=== PATIENT | male | born 1975 | race Caucasian/White ===

== ENCOUNTER 2017-12-27 14:10 | Emergency (ER) | payer OTHER, SELFPAY ==
[2017-12-27 14:12] VITALS: BP 145/98; PULSE 65; RESP 14; TEMP 36.4; O2SAT 100
[2017-12-27] MEDS: KETOROLAC 60 MG/2 ML VIAL 15 MG IV (14:25)
--- NOTE | 2017-12-27 14:26 | DI.CT.S_ITS ---
PROCEDURE: CT ABDOMEN PELVIS W CON INDICATIONS: Right flank and right lower quadrant abdominal pain TECHNIQUE: After the administration of intravenous contrast, 5 mm thick sections acquired from the diaphragm to the symphysis. 5 mm coronal and sagittal reformats were acquired. For radiation dose reduction, the following was used: automated exposure control, adjustment of mA and/or kV according to patient size. COMPARISON: None. FINDINGS: Image quality: Excellent. ABDOMEN: Lung bases: Lung bases are clear. Heart size is normal. Solid organs: Liver is normal in size and enhancement. Gallbladder is within normal limits. Biliary system is non dilated. Pancreas enhances normally. Spleen is normal in size and enhancement. No adrenal nodules. Kidneys demonstrate normal size and enhancement. Minimal right hydronephrosis. No left hydronephrosis. 6 mm diameter nonobstructing calculus in the superior pole right kidney. 5 mm diameter right ureteropelvic junction calculus, with Hounsfield units of 348. Peritoneum and bowel: Bowel loops demonstrate normal wall thickness and caliber. No free fluid or air. Normal appendix. Nodes and vessels: No retroperitoneal or mesenteric adenopathy by size criteria. Aorta and inferior vena cava are normal in size. Miscellaneous: Fat-containing umbilical hernia measuring 13 mm. PELVIS: Genitourinary: Bladder wall thickness is normal. Miscellaneous: No inguinal hernias or adenopathy. Bones: No suspicious bony lesions. No vertebral body compression fractures. IMPRESSION: 1. Right ureteropelvic junction calculus associated with mild right hydronephrosis. 2. Nonobstructing right superior pole renal calculus. 3. Normal appendix. Dictated by: Poly Torres M.D. on 12/27/2017 at 14:56 Approved by: Poly Torres M.D. on 12/27/2017 at 14:59
[2017-12-27] MEDS: SODIUM CHLORIDE 0.9% 1,000 ML 1000 ML IV (14:31)
[2017-12-27 14:37] LABS: INR 1.1 (0.9-1.3); Prothrombin Time 12.2 SECONDS (10.1-12.7)
[2017-12-27 14:38] LABS: Add Manual Diff / Slide Review NO; Basophils Percent Auto 0.7 % (0-2); Eosinophils Percent Auto 1.1 % (2-4); Hematocrit 44.2 % (41-53); Hemoglobin 15.3 g/dL (13.5-17.5); Lymphocytes Percent Auto 41.1 % (25-40); Mean Corpuscular HGB Conc 34.7 % (30-36); Mean Corpuscular Hemoglobin 30.7 PG (26-34); Mean Corpuscular Volume 88.5 fL (80-100); Monocytes Percent Auto 13.8 % (3-14); Neutrophils Absolute Auto 3000 /uL (3000-5900); Neutrophils Percent Auto 43.3 % (50-75); Platelet Count 252 X10^3/uL (150-400); Red Blood Cell Count 4.99 X10^6/uL (4.5-5.9); Red Cell Distribution Width 13.6 % (11.6-14.8); White Blood Cell Count 6.8 X10^3/uL (4.5-11.0)
[2017-12-27 14:40] LABS: PTT Partial Thromboplastin Tim 26 SECONDS (26.4-36.2)
[2017-12-27 14:44] LABS: Alanine Aminotransferase 51 IU/L (21-72); Albumin 4.9 g/dL (3.5-5.0); Albumin Globulin Ratio 1.4 (1.0-2.8); Alkaline Phosphatase 51 U/L (38-126); Aspartate Aminotransferase 38 IU/L (17-59); BUN Creatinine Ratio 23.3 (6-22); Bilirubin Total 0.9 mg/dL (0.2-1.3); Blood Urea Nitrogen 21 mg/dL (9-20); Calcium 9.6 mg/dL (8.4-10.2); Carbon Dioxide 28 mmol/L (22-32); Chloride 99 mmol/L (98-107); Creatine Kinase 173 U/L (55-170); Estimated Glomerular Filt Rate > 60.0 mL/min (>60); Globulin 3.5 g/dL (1.7-4.1); Glucose 120 mg/dL (70-100); HEMOLYSIS 19 (0-50); Lipase 36 U/L (23-300); Potassium 3.7 mmol/L (3.4-5.1); Sodium 142 mmol/L (137-145); Total Protein 8.4 g/dL (6.3-8.2)
[2017-12-27 14:53] LABS: Bacteria Urine None Seen
[2017-12-27 14:56] LABS: Appearance Urine UA CLEAR; Bilirubin Urine UA 2+ (NEGATIVE); Color Urine UA YELLOW; Glucose Urine UA TRACE g/dL (Normal); Ketones Urine UA 1+ (NEGATIVE); Leukocyte Esterase Urine UA TRACE (NEGATIVE); Nitrite Urine UA POSITIVE (Negative); Occult Blood Urine UA 3+ (Negative); Protein Urine UA 3+ (Negative); Specific Gravity Urine UA 1.025 (1.000-1.035); pH Urine UA 6.5 (4.5-8.0)
[2017-12-27 15:09] LABS: Culture Indicated Urine Specimen Cultured; RBC Urine 30-100/HPF (0-5/HPF); WBC Urine 10-30/HPF (0-5/HPF)
[2017-12-27] MEDS: CEFTRIAXONE 1 GM/50 ML FROZ.PIGGY IV (15:40)
[2017-12-27 16:30] LABS: Ictotest Urine Negative (Negative)
[2017-12-27 16:40] LABS: Troponin I < 0.012 ng/mL (0.01-0.034)
--- NOTE | 2017-12-27 16:49 | ED.ABDPAIN ---
HPI - Abdominal Pain General Chief Complaint: Abdominal Pain Stated Complaint: ABD Pain History of Present Illness HPI narrative: HPI 42-year-old male presents for evaluation of poorly characterized waxing and waning right-sided abdominal pain. Yesterday patient had a period of nausea, vomiting, diarrhea which is since resolved, denies fevers, chills, or dysuria. At noon today the patient had sudden onset right sided flying/abdominal pain at weekly radiated towards his right lower quadrant and was without testicular pain or dysuria. M/S/F/SocHx notable for: please see HPI; remainder reviewed with patient and in chart. ROS: Negative constitutional, eye, cardiovascular, pulmonary, GI, , MSK, skin, neurologic, psychiatric, endocrine unless noted in the HPI. Exam HR 65, BP 145/98, RR 14, T 97.6 ?F, SaO2 100 % on room air; at 2:12 PM. Gen: Pleasant, non-toxic appearing, resting in minimal discomfort.. HEENT: NC, AT, PEERL, EOMI. Resp: Clear to auscultation bilaterally, normal work of breathing, no accessory muscle usage. Card: Regular rate and rhythm with no murmurs, rubs, or gallops, extremities warm and well perfused. GI: Non-tender to palpation throughout all quadrants, no focal tenderness at McBurney's point, negative Archibald's sign, non-distended, no rebound or guarding. : No suprapubic tenderness to palpation. No CVA tenderness bilaterally. MSK: No visible deformities, strength and tone without visually appreciable deficit. Skin: Normal color with no visible lesions. Neuro: AO x 3, no facial asymmetry, vision and hearing WNL. Psych: Mood and affect appropriate. Labs / Imaging: WBC 6.8, Hb 15.3, Na 142, K 3.7, total bilirubin 0.9, AST 38, ALT 51, ALP 51, lipase 36, creatinine 0.90, CK 173 UA - 1+ ketones, 3+ occult blood, nitrite positive, 2+ bilirubin, trace leukocyte esterase, 38-100 RBCs, 10-30 WBCs, no bacteria. CT abdomen/pelvis: right ureteral pelvic junction calculus (5 mm) associated with mild right hydronephrosis. Nonobstructing right superior pole renal calculus. Normal appendix. EKG: SR 66 bpm, no ST segment elevations or depressions, no LBBB. Troponin <0.012. MDM Previous chart, nursing note, labs, imaging, and vitals reviewed. A: 42-year-old male presents for evaluation of poorly characterized waxing and waning right-sided abdominal pain. DDx: ureterolithiasis, UTI, pyelonephritis, gastroenteritis, pseudoappendicitis, appendicitis, mesenteric adenitis, epiploic appendagitis, biliary disease. Evaluation: patient with a 5 mm stone, mild hydronephrosis, UA consistent with infection, no evidence of systemic involvement. Discussed with urologist acid conditioning worker, Dr. Cherry of , patient appropriate for outpatient management, patient to follow up at [facility]. Ceftriaxone given for possible infection, patient discharged with RX for Keflex. Sx management - 1 L NS and 30 mg Toradol given. * HTN - [Patient was notified of their elevated blood pressure and recommended to follow up with their primary care physician. As the patient is without evidence of acute end organ dysfunction no further emergent evaluation is indicated as per the 2013 [facility] clinical policy. * Repeat evaluation at approximately 4 PM with patient noting ongoing dyspepsia. Further history with patient statement this began with his emesis, but as persistent despite lack of emesis for last 24 hours. EKG and troponin ordered. Patient given ranitidine, sucralfate, and a GI cocktail. Given a nonischemic EKG, and negative troponin greater than 6 hours from maximal symptom onset strongly doubt ACS, unstable angina considered highly unlikely given the very atypical history. Patient given home care instructions regarding his tentatively suspected Gerd, instructed to follow up with his PCP. Impression: kidney stone, suspected UTI, suspected GERD. (please reference below for remainder of encounter information) Related Data Home Medications Medication Instructions Recorded Confirmed No Known Home Medications 12/27/17 12/27/17 Allergies Allergy/AdvReac Type Severity Reaction Status Date / Time No Known Drug Allergies Allergy Verified 12/27/17 14:16 Exam Initial Vital Signs Initial Vital Signs: Vital Signs Temperature 97.6 F 12/27/17 14:12 Pulse Rate 65 12/27/17 14:12 Respiratory Rate 14 12/27/17 14:12 Blood Pressure 145/98 H 12/27/17 14:12 Pulse Oximetry 100 12/27/17 14:12 Course Orders Ordered: ED Orders 12/27/17 14:22 Complete Blood Count AUTO DIFF Stat Comprehensive Metabolic Panel Stat Creatine Kinase Stat Lipase Stat Partial Thromboplastin Time Stat Prothrombin Time INR Stat Troponin I Stat 12/27/17 14:26 CT abdomen pelvis w con Stat 12/27/17 14:45 Ictotest Urine Stat Urinalysis and Microscopic Stat Urine Culture Stat 12/27/17 16:10 EKG-12 Lead Stat Sucralfate (Carafate) 1 gm PO Q6HR KRISTEN Discontinued Medications Al Hydrox/Mg Hydrox/Simethicone 20 ml/ Lidocaine HCl 15 ml 0 ml PO NOW ONE Stop: 12/27/17 16:41 Sodium Chloride (Normal Saline 0.9%) 1,000 mls @ 1,000 mls/hr IV BOLUS ONE Stop: 12/27/17 15:25 Last Infusion: 12/27/17 15:41 Dose: 0 mls/hr Admin: 12/27/17 14:31 Dose: 1,000 mls/hr Ceftriaxone Sodium/Dextrose (Rocephin) 1 gm in 50 mls @ 100 mls/hr IV NOW ONE Stop: 12/27/17 16:00 Last Infusion: 12/27/17 16:17 Dose: 0 mls/hr Admin: 12/27/17 15:40 Dose: 100 mls/hr Ketorolac Tromethamine (Toradol) 15 mg IV NOW ONE Stop: 12/27/17 14:28 Last Admin: 12/27/17 14:25 Dose: 15 mg Ranitidine HCl (Zantac) 300 mg PO NOW ONE Stop: 12/27/17 16:41 Vital Signs - 8 hr 12/27/17 14:12 Temperature 97.6 F Pulse Rate 65 Respiratory Rate 14 Blood Pressure 145/98 H Pulse Oximetry 100 MDM - Abdominal Pain Lab Data Result diagrams: 12/27/17 14:22 12/27/17 14:22 Lab Results 12/27/17 12/27/17 12/27/17 Range/Units 14:22 14:22 14:22 WBC 6.8 (4.5-11.0) X10^3/uL RBC 4.99 (4.5-5.9) X10^6/uL Hgb 15.3 (13.5-17.5) g/dL Hct 44.2 (41-53) % MCV 88.5 (80-100) fL MCH 30.7 (26-34) PG MCHC 34.7 (30-36) % RDW 13.6 (11.6-14.8) % Plt Count 252 (150-400) X10^3/uL Neut % (Auto) 43.3 L (50-75) % Lymph % (Auto) 41.1 H (25-40) % [place] % (Auto) 13.8 (3-14) % Eos % (Auto) 1.1 L (2-4) % Baso % (Auto) 0.7 (0-2) % Neut # (Auto) 3000 (7793-4775) /uL PT 12.2 (10.1-12.7) SECONDS INR 1.1 (0.9-1.3) APTT 26 L (26.4-36.2) SECONDS Sodium 142 (137-145) mmol/L Potassium 3.7 (3.4-5.1) mmol/L Chloride 99 (98-107) mmol/L Carbon Dioxide 28 (22-32) mmol/L BUN 21 H (9-20) mg/dL Creatinine 0.90 (0.66-1.25) mg/dL Estimated GFR > 60.0 (>60) mL/min BUN/Creatinine Ratio 23.3 H (6-22) Glucose 120 H (70-100) mg/dL Calcium 9.6 (8.4-10.2) mg/dL Total Bilirubin 0.9 (0.2-1.3) mg/dL AST 38 (17-59) IU/L ALT 51 (21-72) IU/L Alkaline Phosphatase 51 (38-126) U/L Total Creatine Kinase 173 H (55-170) U/L Troponin I < 0.012 (0.01-0.034) ng/mL Total Protein 8.4 H (6.3-8.2) g/dL Albumin 4.9 (3.5-5.0) g/dL Globulin 3.5 (1.7-4.1) g/dL Albumin/Globulin Ratio 1.4 (1.0-2.8) Lipase 36 (23-300) U/L Urine Color Urine Appearance Urine pH (4.5-8.0) Ur Specific [place] (1.000-1.035) Urine Protein (Negative) Urine Glucose (UA) (Normal) g/dL Urine Ketones (NEGATIVE) Urine Occult Blood (Negative) Urine Nitrate (Negative) Urine Bilirubin (NEGATIVE) Urine Ictotest (Negative) Urine Urobilinogen (0.2) E.U./dL Ur Leukocyte Esterase (NEGATIVE) Urine RBC (0-5/HPF) Urine WBC (0-5/HPF) Urine Bacteria (None) Ur Culture Indicated? Micro UA Comment 12/27/17 12/27/17 Range/Units 14:45 14:45 WBC (4.5-11.0) X10^3/uL RBC (4.5-5.9) X10^6/uL Hgb (13.5-17.5) g/dL Hct (41-53) % MCV (80-100) fL MCH (26-34) PG MCHC (30-36) % RDW (11.6-14.8) % Plt Count (150-400) X10^3/uL Neut % (Auto) (50-75) % Lymph % (Auto) (25-40) % [place] % (Auto) (3-14) % Eos % (Auto) (2-4) % Baso % (Auto) (0-2) % Neut # (Auto) (8963-5109) /uL PT (10.1-12.7) SECONDS INR (0.9-1.3) APTT (26.4-36.2) SECONDS Sodium (137-145) mmol/L Potassium (3.4-5.1) mmol/L Chloride (98-107) mmol/L Carbon Dioxide (22-32) mmol/L BUN (9-20) mg/dL Creatinine (0.66-1.25) mg/dL Estimated GFR (>60) mL/min BUN/Creatinine Ratio (6-22) Glucose (70-100) mg/dL Calcium (8.4-10.2) mg/dL Total Bilirubin (0.2-1.3) mg/dL AST (17-59) IU/L ALT (21-72) IU/L Alkaline Phosphatase (38-126) U/L Total Creatine Kinase (55-170) U/L Troponin I (0.01-0.034) ng/mL Total Protein (6.3-8.2) g/dL Albumin (3.5-5.0) g/dL Globulin (1.7-4.1) g/dL Albumin/Globulin Ratio (1.0-2.8) Lipase (23-300) U/L Urine Color Yellow Urine Appearance Clear Urine pH 6.5 (4.5-8.0) Ur Specific [place] 1.025 (1.000-1.035) Urine Protein 3+ H (Negative) Urine Glucose (UA) Trace (Normal) g/dL Urine Ketones 1+ H (NEGATIVE) Urine Occult Blood 3+ H (Negative) Urine Nitrate Positive (Negative) Urine Bilirubin 2+ H (NEGATIVE) Urine Ictotest Negative (Negative) Urine Urobilinogen 1.0 (0.2) E.U./dL Ur Leukocyte Esterase Trace H (NEGATIVE) Urine RBC 30-100/hpf H (0-5/HPF) Urine WBC 10-30/hpf H (0-5/HPF) Urine Bacteria None seen (None) Ur Culture Indicated? Specimen cultured Micro UA Comment Not Reportable Discharge Plan Departure Prescriptions: No Action No Known Home Medications RF: 0
[2017-12-27] MEDS: SUCRALFATE 1 GM TABLET PO (16:59)
[2017-12-27] MEDS: MAG HYDROX/ALUMINUM/SIMETH SUS 20 ML, LIDOCAINE VISCOUS 2% 15 ML PO (16:59)
[2017-12-27 17:20] VITALS: BP 132/98; PULSE 57; RESP 20; TEMP 36.7; O2SAT 100
== END 2017-12-27 17:22 | disposition home or self-care (01) ==
PROVIDERS: Emergency Provider Emergency Medicine
DX: N20.0 Calculus of kidney (principal)
CPT/HCPCS: 36591; 74177; 80053; 81001; 82550; 83690; 84484; 85025; 85610; 85730; 87086; 93005; 93010; 96361; 96365; 96375; 99283; 99285; J1885

== ENCOUNTER → 2018-04-12 08:47 | Outpatient (CLI) | payer OTHER, SELFPAY ==
--- NOTE | 2018-04-12 | DI.CT.S_ITS ---
PROCEDURE: CT SINUS SCREEN WO CON INDICATIONS: Neoplasm of uncertain behavior of other respirator TECHNIQUE: Noncontrast 3.0 mm axial images acquired from the frontal sinuses to the mid-sella, with coronal and sagittal reformats. For radiation dose reduction, the following was used: automated exposure control, adjustment of mA and/or kV according to patient size. COMPARISON: None. FINDINGS: Image quality: Excellent. Maxillary Sinuses: No bony remodeling or destruction. Sinuses are clear except for a small mucus retention cyst within the inferior right maxillary sinus. A slight degree of posterior fluid or mucosal thickening can be seen within each maxillary sinus. Ethmoid Air Cells: No bony remodeling or destruction. Sinuses are clear. Sphenoid Sinuses: No bony remodeling or destruction. Sinuses are clear. Frontal Sinuses: No bony remodeling or destruction. Sinuses are clear. Ostiomeatal Complexes: Ostiomeatal complexes are patent. No Sonali cells. Miscellaneous: Visualized intra-orbital contents are normal. No tata bullosa or paradoxical turbinate curvature. No nasal septal deviation. IMPRESSION: Small right maxillary sinus mucus retention cysts, slight fluid or mucosal thickening inferior maxillary sinuses bilaterally. No neoplasm found. If underlying neoplasm is clinically suspected followup by contrast-enhanced MR scanning likely is warranted. Dictated by: Jose York M.D. on 04/12/2018 at 11:33 Approved by: Jose York M.D. on 04/12/2018 at 11:35
== END ==
PROVIDERS: PCP Nurse Practitioner Family; Visit Provider Nurse Practitioner Family
DX: D38.5 Neoplasm of uncertain behavior of other respiratory organs (principal); J34.1 Cyst and mucocele of nose and nasal sinus
CPT/HCPCS: 70486

== ENCOUNTER → 2018-05-31 11:05 | Outpatient (CLI) | payer OTHER, SELFPAY ==
--- NOTE | 2018-05-31 | DI.MRI.S_ITS ---
PROCEDURE: MR ORBITS FACE NECK WO/W CON INDICATIONS: Right facial pain. Right sided neck mass TECHNIQUE: Sagittal/axial/coronal T1 spin echo and STIR. After the administration of contrast, axial/coronal/sagittal T1 fast spin echo with fat saturation through the neck. COMPARISON: [facility], CT, CT SINUS SCREEN WO CON, 04/12/2018, 8:46. FINDINGS: Image quality: Excellent. Lymph nodes: In this patient with this given history, scrutiny is given to the area of clinical concern as marked on the skin of the right mid neck laterally. Just posterior to this marker, there is an enlarged right cervical lymph node seen within level III that measures 2 x 1.3 cm in greatest axial dimension, with a craniocaudal extent of 2.6 cm. No additional enlarged cervical lymph nodes can be seen on either side. Vessels: Visualized vasculature appears normal, with normal flow voids and enhancement. Neck spaces: The oropharynx, nasopharynx and pharynx are unremarkable, without mucosal lesions seen. Vocal cords, false vocal cords, pyriform sinuses, epiglottis, vallecula, and tongue base all appear normal. Extramucosal spaces of the neck also appear unremarkable. Glands: The parotid glands demonstrate a normal, symmetric appearance. The right submandibular gland is more prominent than the left submandibular gland. The thyroid gland is unremarkable. Miscellaneous: Visualized brain and orbits appear normal. Lung apices appear clear. Superficial soft tissues appear normal. There is a mucous retention cyst seen within the right maxillary sinus. Mild mucosal thickening can be seen within the ethmoid air cells and the left maxillary sinus. Bones: Marrow has normal overall signal. IMPRESSION: Just posterior to the skin marker, there is a mildly enlarged right level III lymph node. The right submandibular gland is asymmetrically enlarged compared to the left, which is potentially related to the palpable abnormality. Please correlate with physical examination findings. Mild paranasal sinus disease. Dictated by: Son Ramirez M.D. on 05/31/2018 at 11:40 Approved by: Son Ramirez M.D. on 05/31/2018 at 11:49
== END ==
PROVIDERS: PCP Nurse Practitioner Family; Visit Provider Otolaryngology
DX: R59.0 Localized enlarged lymph nodes (principal); R51 Headache; J32.8 Other chronic sinusitis
CPT/HCPCS: 70543; A9579

== ENCOUNTER → 2019-07-13 10:48 | Outpatient (CLI) | payer OTHER, SELFPAY ==
--- NOTE | 2019-07-13 10:53 | DI.US.S_ITS ---
PROCEDURE: US SOFT TISSUE HEAD AND NECK INDICATIONS: SUBJECTIVE PROGRESSION IN SUBMANDIBULAR NECK MASS TECHNIQUE: Real-time scanning was performed of the neck region of interest, with image documentation. COMPARISON: [facility], CT, CT SINUS SCREEN WO CON, 04/12/2018, 8:46. [facility], MR, MR ORBITS FACE NECK WO/W CON, 05/31/2018, 11:26. FINDINGS: In the area of current clinical concern which reportedly has represented an area of enlarged lymph nodes on the right from prior MR scanning there is a large heterogeneous mass which measures up to 5.4 x 3.0 cm. This appears to represent the same mass as was identified during MR scanning 05/31/18. Maximal axial dimension of this structure in May of last year was up to 2.3 cm. IMPRESSION: The measured dimensions of the level III right neck mass has mildly enlarged, from the MR measurements in May of 2018. Excisional biopsy may be warranted at this time. ENT surgical consultation is recommended. Dictated by: Jose York M.D. on 07/13/2019 at 12:30 Approved by: Jose York M.D. on 07/13/2019 at 12:35
== END ==
PROVIDERS: PCP Family Medicine; Referring Provider Family Medicine; Visit Provider Family Medicine
DX: R22.1 Localized swelling, mass and lump, neck (principal)
CPT/HCPCS: 76536

== ENCOUNTER → 2019-08-04 09:11 | Outpatient (CLI) | payer OTHER, SELFPAY ==
--- NOTE | 2019-08-04 09:22 | DI.CT.S_ITS ---
PROCEDURE: CT SOFT TISSUE NECK W CON INDICATIONS: Localized swelling, mass and lump, neck TECHNIQUE: After the administration of intravenous contrast, 3.0 mm axial sections acquired from the sella to the aortic arch. Additional oblique axial 3.0 mm sections acquired through the pharynx. 3 mm thick coronal and sagittal reformats were generated. For radiation dose reduction, the following was used: automated exposure control. COMPARISON: None. FINDINGS: Image quality: Excellent. Lymph nodes: Deep to the skin marker in the right lateral neck is a heterogeneous mass at the level of the hyoid bone anterior to the jugular vein level 2A/III measuring 5.7 x 3.8 x 3.8 cm, (2/46 and 4/30), previously on ultrasound 07/13/2019 this measured 5.4 x 3 x 4 cm; and previously 2.4 x 2.4 cm on MR 05/31/2018. The mass demonstrates heterogeneous enhancement with a lobular configuration and cystic component. At the level of the hyoid bone on the right posterior to the jugular vein is a heterogeneous lymph node measuring 1.5 x 1.5 cm, (2/45). A few shotty lymph nodes in the right lower supraclavicular neck. Vessels: Visualized vasculature appears patent. Neck spaces: The oropharynx, nasopharynx, and pharynx demonstrate no mucosal lesions. The vocal cords, false vocal cords, pyriform sinuses, epiglottis, vallecula, and tongue base all appear normal. Extramucosal spaces appear unremarkable. Glands: The parotid and submandibular glands are symmetric. Thyroid gland is unremarkable. Miscellaneous: No filling defect in the right jugular vein. No calcified atherosclerotic plaque. Mucosal thickening or mucous retention cyst in the right maxillary sinus similar to multiple prior exams. Subcutaneous nodule posterior to the left year and left skull base may represent small sebaceous cysts. Visualized brain and orbits appear normal. Lung apices appear clear. Superficial soft tissues appear normal. Bones: No suspicious bony lesions. Visualized sinuses and mastoids appear unremarkable. IMPRESSION: 1. Right level 2A/III heterogeneous enhancing mass measuring about 5.7 x 3.8 cm. The lesion is similar in size to the ultrasound 07/13/2019 blood increased compared to 05/31/2018. 2. Additional enlarged right level 2B/III heterogeneous lymph node measuring 1.5 cm. These findings are suspicious for malignancy. Recommend ultrasound-guided biopsy if not yet performed. PET/CT may be helpful for further evaluation. Dictated by: Anselmo Church M.D. on 08/04/2019 at 10:15 Approved by: Anselmo Church M.D. on 08/04/2019 at 10:36
== END ==
PROVIDERS: PCP Family Medicine; Referring Provider Otolaryngology; Visit Provider Otolaryngology
DX: R22.1 Localized swelling, mass and lump, neck (principal); G50.0 Trigeminal neuralgia; R59.0 Localized enlarged lymph nodes
CPT/HCPCS: 70491; Q9967

== ENCOUNTER 2019-10-04 15:20 | Observation (INO) | payer OTHER, SELFPAY ==
[2019-10-04 15:34] VITALS: BP 151/89; PULSE 78; RESP 18; TEMP 36.7; O2SAT 99; BMI 30.3
--- NOTE | 2019-10-04 15:48 | ED_ITS ---
HPI - General Adult General Chief complaint: Dental/Oral Stated complaint: BLEEDING AFTER TONSILS OUT Time Seen by Provider: 10/04/19 15:44 Source: patient and family Mode of arrival: Family Vehicle Limitations: no limitations History of Present Illness HPI narrative: This is a 43-year-old male who comes to the emergency department with complaint of bleeding from the tonsils. Patient had mass removed about a month ago. Had tonsillectomy with biopsies yesterday with Dr. Pittman at [place]. Patient states that today he had some soup and then coughed and started having bleeding he states seem like there was a significant amount and bled for about 10 or 15 minutes. He denies any lightheadedness, he did not feel like he is going to pass out. He has pain in his tonsils he states that the bleeding has since stopped since his arrival. Patient denies any chest pain or shortness of breath, no nausea or vomiting. Patient is not on any anticoagulants. He is taking ibuprofen, Tylenol as well as OxyContin for pain control. Patient has had orthopedic surgeries in the past but denies any other medical issues. He denies any allergies to medications. Related Data Home Medications Medication Instructions Recorded Confirmed acetaminophen [Tylenol Extra 1,000 mg PO QID PRN 10/04/19 10/04/19 Strength] ibuprofen 600 mg PO Q8H PRN 10/04/19 10/04/19 oxycodone 5 mg PO Q4HR PRN 10/04/19 10/04/19 Allergies Allergy/AdvReac Type Severity Reaction Status Date / Time No Known Drug Allergies Allergy Verified 10/04/19 15:36 Review of Systems Review of Systems ROS Unobtainable: All systems reviewed & are unremarkable except as noted in HPI and below Patient History Medical History ADHD (Acute) Anxiety (Acute) Foot pain (Chronic) Fractures (Resolved) Neck mass (Acute) Psoriasis (Acute) PTSD (post-traumatic stress disorder) (Acute) Restless leg syndrome (Acute) Right arm fracture (Acute) Shoulder pain (Chronic) Surgical History Anesthesia (Resolved) History of surgery (Resolved ~2007) History of surgery on arm (Resolved ~1999) Right kidney stone (Resolved ~2017) Family History (Updated 10/05/19 @ 01:32 by AMMON Chávez) Mother Stroke Kidney disease Substance abuse Father Medical history unknown Social History household members: spouse and friend(s) Smoking Status: Former smoker Smoking Status: Former smoker alcohol intake frequency: 0-2 drinks per day Substance Use Type: does not use Exam Narrative Exam Narrative: GEN: well nourished, well appearing male, alert and oriented x 3, patient appears to be in mild distress. HEENT: Atraumatic, pupils are equal round reactive to light, extraocular movements are intact, nares are clear, TMs are clear with no fluid, there is no conjunctival pallor. Throat is shows bilateral wounds consistent with tonsillectomy, no eschar or fibrin clot is noted, no erythema, there is pink tissue present. No active bleeding but there is some wet red blood in the tissue itself. Patient does not have any swelling of the uvula or oropharynx. HEART: Regular rate and rhythm without murmur, clicks, rubs. LUNGS:Lungs clear to auscultation, no wheezes, rales, crackles, chest moves symmetrically ABD:bowel sounds normal, soft, non-tender, no guarding, rebound, rigidity, no masses noted, no hepatosplenomegaly MSCL: Non-tender, full range of motion, normal gait NEURO:CN 2-12 intact, sensation normal Initial Vital Signs Initial Vital Signs: Vital Signs Temperature 98.0 F 10/04/19 15:34 Pulse Rate 78 10/04/19 15:34 Respiratory Rate 18 10/04/19 15:34 Blood Pressure 151/89 H 10/04/19 15:34 Pulse Oximetry 99 10/04/19 15:34 Course Orders Ordered: Discontinued Medications Hydromorphone HCl (Dilaudid) 0.5 mg IV NOW ONE Stop: 10/05/19 06:42 Last Admin: 10/05/19 06:57 Dose: 0.5 mg Documented by: MPFECARMELINA Hydromorphone HCl (Dilaudid) 0.5 mg IV NOW ONE Stop: 10/05/19 10:00 Last Admin: 10/05/19 10:16 Dose: 0.5 mg Documented by: CPETRIC Sodium Chloride (Normal Saline 0.9%) 1,000 mls @ 75 mls/hr IV CONT KRISTEN Last Infusion: 10/05/19 09:48 Dose: 0 mls/hr Documented by: Infusion: 10/05/19 03:44 Dose: 75 mls/hr Documented by: Admin: 10/05/19 03:43 Dose: 75 mls/hr Documented by: Infusion: 10/05/19 03:23 Dose: 75 mls/hr Documented by: Infusion: 10/05/19 01:36 Dose: 75 mls/hr Documented by: Infusion: 10/04/19 19:18 Dose: 125 mls/hr Documented by: Admin: 10/04/19 18:40 Dose: 125 mls/hr Documented by: GEORGIE Lorazepam (Ativan) 0.5 mg IV NOW ONE Stop: 10/04/19 16:36 Last Admin: 10/04/19 16:45 Dose: 0.5 mg Documented by: GEORGIE Morphine Sulfate (Morphine) 2 mg IV Q4HR PRN PRN Reason: Pain, Mild (1-3) Last Admin: 10/04/19 18:40 Dose: 2 mg Documented by: GEORGIE Morphine Sulfate (Morphine) 2 mg IV Q4HR PRN PRN Reason: Pain, Moderate (4-6) Last Admin: 10/05/19 05:07 Dose: 2 mg Documented by: Admin: 10/05/19 01:02 Dose: 2 mg Documented by: Admin: 10/04/19 21:10 Dose: 2 mg Documented by: MARIO Naloxone HCl (Narcan) 0.2 mg IV Q2MIN PRN PRN Reason: Opiate Reversal Ondansetron HCl (Zofran) 4 mg IV Q4HR PRN PRN Reason: Nausea And Vomiting Last Admin: 10/04/19 18:40 Dose: 4 mg Documented by: GEORGIE Ondansetron HCl (Zofran) 4 mg IV Q6HR PRN PRN Reason: Nausea And Vomiting Tranexamic Acid (Cyklokapron) 500 mg MM NOW ONE Stop: 10/04/19 16:01 Last Admin: 10/04/19 16:19 Dose: 500 mg Documented by: LUIGI Vital Signs Vital signs: Vital Signs - 8 hr 10/04/19 15:34 10/04/19 16:02 10/04/19 16:20 Temperature 98.0 F Pulse Rate 78 72 78 Respiratory Rate 18 14 14 Blood Pressure 151/89 H Blood Pressure [Left Arm] 127/70 Pulse Oximetry 99 99 10/04/19 17:21 Temperature Pulse Rate 69 Respiratory Rate 14 Blood Pressure Blood Pressure [Left Arm] 132/78 Pulse Oximetry Medical Decision Making Lab Data Result diagrams: 10/05/19 04:40 10/05/19 04:40 Labs: Lab Results 10/04/19 10/04/19 10/04/19 Range/Units 17:15 17:15 17:15 WBC 19.8 H (4.5-11.0) X10^3/uL RBC 4.72 (4.5-5.9) X10^6/uL Hgb 14.1 (13.5-17.5) g/dL Hct 40.6 L (41-53) % MCV 85.9 (80-100) fL MCH 29.8 (26-34) PG MCHC 34.7 (30-36) % RDW 14.2 (11.6-14.8) % Plt Count 266 (150-400) X10^3/uL Neut % (Auto) 79.5 H (50-75) % Lymph % (Auto) 7.7 L (25-40) % [place] % (Auto) 12.3 (3-14) % Eos % (Auto) 0.1 L (2-4) % Baso % (Auto) 0.4 (0-2) % Neut # (Auto) 59940 H (4954-3645) /uL Lymph # (Auto) 1500 (5549-9795) /uL [place] # (Auto) 2400 H (0-900) /uL Eos # (Auto) 0 (0-450) /uL Baso # (Auto) 100 (0-100) /uL PT 11.6 (10.1-12.7) SECONDS INR 1.0 (0.9-1.3) APTT 29 D (26.4-36.2) SECONDS Sodium (137-145) mmol/L Potassium (3.4-5.1) mmol/L Chloride (98-107) mmol/L Carbon Dioxide (22-32) mmol/L BUN (9-20) mg/dL Creatinine (0.66-1.25) mg/dL Estimated GFR (>60) mL/min BUN/Creatinine Ratio (6-22) Glucose (70-100) mg/dL Calcium (8.4-10.2) mg/dL Total Bilirubin (0.2-1.3) mg/dL AST (17-59) IU/L ALT (<50) IU/L Alkaline Phosphatase (38-126) U/L Total Protein (6.3-8.2) g/dL Albumin (3.5-5.0) g/dL Globulin (1.7-4.1) g/dL Albumin/Globulin Ratio (1.0-2.8) Blood Type O Positive Antibody Screen Negative 10/04/19 Range/Units 17:15 WBC (4.5-11.0) X10^3/uL RBC (4.5-5.9) X10^6/uL Hgb (13.5-17.5) g/dL Hct (41-53) % MCV (80-100) fL MCH (26-34) PG MCHC (30-36) % RDW (11.6-14.8) % Plt Count (150-400) X10^3/uL Neut % (Auto) (50-75) % Lymph % (Auto) (25-40) % [place] % (Auto) (3-14) % Eos % (Auto) (2-4) % Baso % (Auto) (0-2) % Neut # (Auto) (1979-0805) /uL Lymph # (Auto) (6267-8443) /uL [place] # (Auto) (0-900) /uL Eos # (Auto) (0-450) /uL Baso # (Auto) (0-100) /uL PT (10.1-12.7) SECONDS INR (0.9-1.3) APTT (26.4-36.2) SECONDS Sodium 136 L (137-145) mmol/L Potassium 4.6 (3.4-5.1) mmol/L Chloride 102 (98-107) mmol/L Carbon Dioxide 27 (22-32) mmol/L BUN 21 H (9-20) mg/dL Creatinine 0.73 (0.66-1.25) mg/dL Estimated GFR > 60.0 (>60) mL/min BUN/Creatinine Ratio 28.8 H (6-22) Glucose 112 H (70-100) mg/dL Calcium 9.5 (8.4-10.2) mg/dL Total Bilirubin 0.5 (0.2-1.3) mg/dL AST 27 (17-59) IU/L ALT 31 (<50) IU/L Alkaline Phosphatase 48 (38-126) U/L Total Protein 8.3 H (6.3-8.2) g/dL Albumin 4.6 (3.5-5.0) g/dL Globulin 3.7 (1.7-4.1) g/dL Albumin/Globulin Ratio 1.2 (1.0-2.8) Blood Type Antibody Screen MDM Narrative Medical decision making narrative: Patient comes to the emergency department he is not actively bleeding on arrival but does describe a fairly large amount of blood. Patient was not tachycardic, blood pressure is appropriate. He had tonsillectomy yesterday. Patient was given txa nebulized in the department. Line was placed and after much discussion patient is initially refusing lab draw for type and screen and CBC. I did discuss that if patient has continuing bleeding that it would be important to at least have a type and screen after a long discussion of risks versus benefits patient is willing to allow the lab to draw him after receiving anxiolytic medication. Patient's family was at bedside, so was RT during this discussion. Patient case discussed with Dr. Rapp. Discussed patient was reluctant to allow blood draw. We were able to and hematocrit has changed from 44-[address] Rapp did not have this number available. Patient's vitals have been stable he has not had additional bleeding in the last hour and a half during our discussion with Dr. Rapp. Discussed that with his post-tonsillar bleed he would recommend gargling with ice water for reoccurs. We did discuss that it is unclear how large amount of bleeding but sounds like potentially moderate not massive opt of CIS home. Patient is reluctant to return home he would recommend observation overnight, if patient feels comfortable returning home and has no additional bleeding after several hours of observation patient can return but she with strict return precautions and if he has additional bleeding Dr. Pittman is on-call tonight. Spoke with Dr. Hawk, she accepts for observation. She requests transitional orders. Given cell phone number for Dr. Pittman who is international project engineer tonight for ENT. Patient comfortable with plan. He had not had any additional bleeding in the emergency department but had a moderate to large amount of bleeding and would be appropriate for observation overnight. Discharge Plan Departure Patient Disposition: Admitted as Observation Clinical Impression: Post-tonsillectomy hemorrhage Discharge Date/Time: 10/04/19 19:21 Instructions: Clear Liquid Diet, DI for Tonsillectomy-Adult, DI for Prescription Opioid Use Referrals: Devan Pittman MD [Physician] - 10/05/19 Mandeep Lyman DO [Primary Care Provider] - Admit Date/Time: 10/04/19 18:29 Admit Provider: Aby Hawk
[2019-10-04 16:02] VITALS: BP 127/70; PULSE 72; RESP 14
[2019-10-04] MEDS: TRANEXAMIC ACID 1,000 MG VIAL 500 MG MM (16:19)
[2019-10-04 16:20] VITALS: PULSE 78; RESP 14; O2SAT 99
[2019-10-04] MEDS: LORazepam 2 MG/ML INJ 0.5 MG IV (16:45)
[2019-10-04 17:21] VITALS: BP 132/78; PULSE 69; RESP 14
[2019-10-04 17:37] LABS: Prothrombin Time 11.6 SECONDS (10.1-12.7)
[2019-10-04 17:40] LABS: PTT Partial Thromboplastin Tim 29 SECONDS (26.4-36.2)
[2019-10-04 17:41] LABS: Alanine Aminotransferase 31 IU/L (<50); Albumin 4.6 g/dL (3.5-5.0); Albumin Globulin Ratio 1.2 (1.0-2.8); Alkaline Phosphatase 48 U/L (38-126); Aspartate Aminotransferase 27 IU/L (17-59); BUN Creatinine Ratio 28.8 (6-22); Bilirubin Total 0.5 mg/dL (0.2-1.3); Blood Urea Nitrogen 21 mg/dL (9-20); Calcium 9.5 mg/dL (8.4-10.2); Carbon Dioxide 27 mmol/L (22-32); Chloride 102 mmol/L (98-107); Estimated Glomerular Filt Rate > 60.0 mL/min (>60); Globulin 3.7 g/dL (1.7-4.1); Glucose 112 mg/dL (70-100); HEMOLYSIS < 15 (0-50); Potassium 4.6 mmol/L (3.4-5.1); Sodium 136 mmol/L (137-145); Total Protein 8.3 g/dL (6.3-8.2)
[2019-10-04 17:42] LABS: Add Manual Diff / Slide Review NO; Basophils Absolute Auto 100 /uL (0-100); Basophils Percent Auto 0.4 % (0-2); Eosinophils Absolute Auto 0 /uL (0-450); Eosinophils Percent Auto 0.1 % (2-4); Hematocrit 40.6 % (41-53); Hemoglobin 14.1 g/dL (13.5-17.5); Lymphocytes Absolute Auto 1500 /uL (1100-4500); Lymphocytes Percent Auto 7.7 % (25-40); Mean Corpuscular HGB Conc 34.7 % (30-36); Mean Corpuscular Hemoglobin 29.8 PG (26-34); Mean Corpuscular Volume 85.9 fL (80-100); Monocytes Absolute Auto 2400 /uL (0-900); Monocytes Percent Auto 12.3 % (3-14); Neutrophils Absolute Auto 15700 /uL (1500-7000); Neutrophils Percent Auto 79.5 % (50-75); Platelet Count 266 X10^3/uL (150-400); Red Blood Cell Count 4.72 X10^6/uL (4.5-5.9); Red Cell Distribution Width 14.2 % (11.6-14.8); White Blood Cell Count 19.8 X10^3/uL (4.5-11.0)
[2019-10-04] MEDS: ONDANSETRON 4 MG/2 ML INJ IV (18:40)
[2019-10-04] MEDS: MORPHINE 2 MG/ML INJ IV ×2 (18:40→21:10)
[2019-10-04] MEDS: SODIUM CHLORIDE 0.9% 1,000 ML 125 ML IV (18:40)
[2019-10-04 18:52] VITALS: BP 128/85; PULSE 74; RESP 12; O2SAT 98
[2019-10-04 19:32] VITALS: BMI 30.3
[2019-10-04 20:23] VITALS: O2SAT 99
--- NOTE | 2019-10-04 20:52 | P.HP_ITS ---
History of Present Illness History of Present Illness Date Patient Seen: 10/04/19 Time Patient Seen: 20:40 Chief complaint: BLEEDING AFTER TONSILS OUT Narrative: Mr. Joe Yeh is a 43-year-old male who was a former smoker with a history significant for neck masses found to be squamous cell cancer, nephro lithiasis, anxiety and PTSD who presents to the emergency room with post tonsillectomy bleeding. The patient underwent tonsillectomy yesterday by Dr. Pittman. The patient was eating liquid meal when he coughed and began bleeding profusely. Patient reports feeling a cup with blood lasting about 5 minutes. Patient presented to the ER at which time bleeding it is all but stopped. 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 Patient 3 of 23 lymph nodes returned positive for squamous cell cancer, TX N3 MX. He is being followed by oncology and is to start chemo and radiation therapy. The patient recovered well from his neck procedure the reports paresthesias to the lateral neck extending to the jaw line to midline. Reports no associated symptoms related to today's event with no lightheadedness or dizziness, nausea vomiting. He has had no recent illness and denies COVID-19 exposure. He has had no fevers or chills, headaches. He has been somewhat hoarse following tonsillectomy. Denies complaints of chest pain or palpitations, shortness of breath cough or wheezing. He has had no abdominal pain, heartburn, nausea or vomiting. Reports no changes in bowel or bladder habits. Upon arrival the patient has a temperature of 98.0?, heart rate of 81, blood pressure 151/89, respirations of 14 saturating 99% on room air. No imaging is obtained the patient has an elevated white count at 19.8, hemoglobin of 14.1, hematocrit of 40.6 and platelets 266. On coagulation has a PT of 11.6, INR 1.0 PTT of 29. His electrolytes are all within normal limits he has a BUN 21 and creatinine 0.73. His nonfasting glucose is 112. His LFTs are all within normal limits. He is typed and screened and found to be O positive. Well in the ER the patient received nebulized tranexamic acid, Ativan 0.5 mg and morphine 2 mg and Zofran 4 mg. Bleeding is controlled. The case is reviewed with Dr. Rapp who was on-call for Dr. Pittman and is recommended the patient stay overnight for observation and is admitted to the medicine service for postoperative bleeding. Patient History Medical History ADHD (Acute) Anxiety (Acute) Foot pain (Chronic) Fractures (Resolved) Neck mass (Acute) Psoriasis (Acute) PTSD (post-traumatic stress disorder) (Acute) Restless leg syndrome (Acute) Right arm fracture (Acute) Shoulder pain (Chronic) Surgical History Anesthesia (Resolved) History of surgery (Resolved ~2007) History of surgery on arm (Resolved ~1999) Right kidney stone (Resolved ~2017) Family & Social History Family History (Updated 10/05/19 @ 01:32 by AMMON Chávez) Mother Stroke Kidney disease Substance abuse Father Medical history unknown Social History: household members spouse,friend(s) Prior Living Arrangements House Safety & Behavioral: Feels Safe in Current Yes Environment Been Physically Hurt or No Threatened By a Person Suicidal Ideation Description None Suicide Plan Description No Plan Tobacco & Substance use: Smoking Status Former smoker alcohol intake frequency 0-2 drinks per day Substance Use Type does not use Meds Home Medications and Allergies Home Medications Medication Instructions Recorded Confirmed Type acetaminophen [Tylenol Extra 1,000 mg PO QID PRN 10/04/19 10/04/19 History Strength] ibuprofen 600 mg PO Q8H PRN 10/04/19 10/04/19 History oxycodone 5 mg PO Q4HR PRN 10/04/19 10/04/19 History Allergies Allergy/AdvReac Type Severity Reaction Status Date / Time No Known Drug Allergies Allergy Verified 10/04/19 15:36 Review of Systems Review of Systems ROS: Yes All systems reviewed with the patient and are negative except as otherwise documented Exam Vital Signs (past 8 hours): - 10/04/19 17:21 10/04/19 18:52 10/04/19 20:23 Temperature Pulse Rate 69 74 Respiratory Rate 14 12 Blood Pressure Blood Pressure [Left Arm] 132/78 128/85 Pulse Oximetry 98 99 10/05/19 00:23 Temperature 98.0 F Pulse Rate 78 Respiratory Rate 16 Blood Pressure 128/80 Blood Pressure [Left Arm] Pulse Oximetry 97 Oxygen Delivery Method Room Air Narrative Exam Narrative: GENERAL APPEARANCE: well developed, well nourished, in no acute distress. HEENT: Normocephalic, PERRLA, conjunctiva clear, EOMs intact without nystagmus, oropharynx pink and moist, uvula swollen, tonsillar bed as best visualized with eschar and no active bleeding. NECK/THYROID: Well-healed T incision right lateral neck, numbness inferior to the mandible and to midline anteriorly, full ROM, no JVD, no thyromegaly, trachea midline. LYMPH NODES: no cervical or supraclavicular lymphadenopathy. SKIN: [place], warm and dry, no visible rashes, ulcerations or petechiae. HEART: regular rate and rhythm, S1-S2, no murmur, no rubs or gallops, brisk capillary refill, no edema LUNGS: clear to auscultation bilaterally, no coarseness crackles or wheezing, no cough present CHEST: Symmetrical movement, no accessory muscle use, good tidal volume. ABDOMEN: Soft, no distention, no abdominal tenderness, no guarding or peritoneal signs, no organomegaly, no flank or suprapubic tenderness, active bowel tones. BACK: Normal curvature, nontender to palpation, no CVA tenderness on percussion EXTREMITIES: moves all extremities, strength is 5/5 and symmetrical, no deformities or joint effusions. NEUROLOGIC: AAO x4, no focal neurologic deficits, cranial nerves II-XII grossly intact, peripheral sensation intact to light touch, hearing grossly normal to speech. PSYCH: Anxious, quiet, cooperative, stable behavior Objective Labs Result Diagrams: 10/04/19 17:15 10/04/19 17:15 Labs: Laboratory Results - last 24 hr 10/04/19 10/04/19 10/04/19 17:15 17:15 17:15 WBC 19.8 H RBC 4.72 Hgb 14.1 Hct 40.6 L MCV 85.9 MCH 29.8 MCHC 34.7 RDW 14.2 Plt Count 266 Neut % (Auto) 79.5 H Lymph % (Auto) 7.7 L [place] % (Auto) 12.3 Eos % (Auto) 0.1 L Baso % (Auto) 0.4 Neut # (Auto) 60138 H Lymph # (Auto) 1500 [place] # (Auto) 2400 H Eos # (Auto) 0 Baso # (Auto) 100 PT 11.6 INR 1.0 APTT 29 D Sodium Potassium Chloride Carbon Dioxide BUN Creatinine Estimated GFR BUN/Creatinine Ratio Glucose Calcium Total Bilirubin AST ALT Alkaline Phosphatase Total Protein Albumin Globulin Albumin/Globulin Ratio Blood Type O Positive Antibody Screen Negative 10/04/19 17:15 WBC RBC Hgb Hct MCV MCH MCHC RDW Plt Count Neut % (Auto) Lymph % (Auto) [place] % (Auto) Eos % (Auto) Baso % (Auto) Neut # (Auto) Lymph # (Auto) [place] # (Auto) Eos # (Auto) Baso # (Auto) PT INR APTT Sodium 136 L Potassium 4.6 Chloride 102 Carbon Dioxide 27 BUN 21 H Creatinine 0.73 Estimated GFR > 60.0 BUN/Creatinine Ratio 28.8 H Glucose 112 H Calcium 9.5 Total Bilirubin 0.5 AST 27 ALT 31 Alkaline Phosphatase 48 Total Protein 8.3 H Albumin 4.6 Globulin 3.7 Albumin/Globulin Ratio 1.2 Blood Type Antibody Screen Assessment & Plan Assessment & Plan narrative: This is a 43-year-old male patient who presents to the ER with post tonsillectomy bleeding following procedure yesterday. Procedure was done in conjunction with neck surgery for excision of squamous cell carcinoma. 1. Post tonsillectomy hemorrhage, acute, present on admission, controlled. -patient underwent tonsillectomy yesterday for invasive squamous cell carcinoma. He had abrupt onset of profuse bleeding following coughing today. -from description from patient estimated EBL is approximately 250-300 mL. Patient without associated symptoms of dizziness or shortness of breath. -in the ER the patient received nebulized tranexamic acid. No further intervention required. -Dr. Rapp on-call for Dr. Pittman who performed the procedure was notified planned developed for patient to be observed overnight with the ENT consult. -patient is NPO tonight and will start clear liquids in the morning. -will recheck blood count in the morning. 2. Leukocytosis, acute, present on admission, active -patient with an elevated white count at 19.8 without complaints of fever pain or swelling. Infection related to tonsillectomy is rare and believed to be reactive. -will recheck CBC in the morning. 3. Squamous cell carcinoma of the neck, present on admission, stable. -tonsillectomy performed related to invasion of squamous cell carcinoma. -patient to follow with oncology and is to start chemo and radiation therapy. Isolation: None VTE prophylaxis: SCDs, chemical prophylaxis contraindicated. IV fluid: Normal saline 125 while patient NPO. Diet: NPO, clear liquids in the morning. Code status: In direct discussion with patient states his desire to be FULL CODE. Designates his to be surrogate decision maker. Patient is admitted due to the severity of his symptoms and continued risk of rebleeding following tonsillectomy yesterday. The patient is admitted observation status with an expected length of stay less than 2 midnights. Scores GCS [place] coma scale eye opening: Spontaneous [place] coma scale verbal response: Orientated [place] coma scale motor response: Obey commands [place] coma scale total score: 15 Quality VTE Deep Vein Thrombosis/Pulmonary Embolism Present on Admission: No
--- NOTE | 2019-10-04 20:53 | PC.NURSE ---
admit pt to AC from ER approx 191. VSS. A&O x3. oral mucosa moist and without presence of active bleed. Oral swabs and chapstick provided. Pt independent in bed and instructed to notify RN/DIP TUBE ASSEMBLER MACHINE prior to activity for assist with equipment. Able to converse and swallow secretions without difficulty. Instructed on use of call light and bed controls.
[2019-10-05] VITALS: O2SAT 97
[2019-10-05 00:23] VITALS: BP 128/80; PULSE 78; RESP 16; TEMP 36.7; O2SAT 97
[2019-10-05] MEDS: MORPHINE 2 MG/ML INJ IV ×2 (01:02→05:07)
[2019-10-05 03:40] VITALS: BP 122/75; PULSE 63; RESP 16; TEMP 36.5; O2SAT 96
[2019-10-05] MEDS: SODIUM CHLORIDE 0.9% 1,000 ML 75 ML IV (03:43)
[2019-10-05 04:00] VITALS: O2SAT 96
[2019-10-05 05:09] LABS: Add Manual Diff / Slide Review NO; Basophils Absolute Auto 0 /uL (0-100); Basophils Percent Auto 0.1 % (0-2); Eosinophils Absolute Auto 0 /uL (0-450); Hematocrit 37.8 % (41-53); Lymphocytes Absolute Auto 2800 /uL (1100-4500); Lymphocytes Percent Auto 20.5 % (25-40); Mean Corpuscular HGB Conc 34.5 % (30-36); Mean Corpuscular Volume 86.9 fL (80-100); Monocytes Absolute Auto 1900 /uL (0-900); Monocytes Percent Auto 13.9 % (3-14); Neutrophils Absolute Auto 8800 /uL (1500-7000); Neutrophils Percent Auto 65.5 % (50-75); Platelet Count 239 X10^3/uL (150-400); Red Blood Cell Count 4.35 X10^6/uL (4.5-5.9); Red Cell Distribution Width 14.1 % (11.6-14.8); White Blood Cell Count 13.5 X10^3/uL (4.5-11.0)
[2019-10-05 05:19] LABS: BUN Creatinine Ratio 22.9 (6-22); Blood Urea Nitrogen 19 mg/dL (9-20); Calcium 8.6 mg/dL (8.4-10.2); Carbon Dioxide 28 mmol/L (22-32); Chloride 103 mmol/L (98-107); Estimated Glomerular Filt Rate > 60.0 mL/min (>60); Glucose 107 mg/dL (70-100); HEMOLYSIS < 15 (0-50); Potassium 4.4 mmol/L (3.4-5.1); Sodium 137 mmol/L (137-145)
[2019-10-05] MEDS: HYDROMORPHONE 0.5 MG INJ IV ×2 (06:57→10:16)
--- NOTE | 2019-10-05 07:01 | PC.NURSE ---
AMMON Garcia notified that Morphine 2 mg. was not effective for pain control. Ordered of Dilaudid 0.5 mg. received & implemented. Ice pack also applied to his neck. Will cont. POC & monitor.
[2019-10-05 08:08] VITALS: BP 133/82; PULSE 75; RESP 16; TEMP 36.9; O2SAT 99
--- NOTE | 2019-10-05 09:26 | PM.DS.1 ---
History of Present Illness History of Present Illness Date Patient Seen: 10/04/19 Chief complaint: BLEEDING AFTER TONSILS OUT Narrative: Written by Matthew VERDE: Mr. Joe Yeh is a 43-year-old male who was a former smoker with a history significant for neck masses found to be squamous cell cancer, nephro lithiasis, anxiety and PTSD who presents to the emergency room with post tonsillectomy bleeding. The patient underwent tonsillectomy yesterday by Dr. Pittman. The patient was eating liquid meal when he coughed and began bleeding profusely. Patient reports feeling a cup with blood lasting about 5 minutes. Patient presented to the ER at which time bleeding it is all but stopped. 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 Patient 3 of 23 lymph nodes returned positive for squamous cell cancer, TX N3 MX. He is being followed by oncology and is to start chemo and radiation therapy. The patient recovered well from his neck procedure the reports paresthesias to the lateral neck extending to the jaw line to midline. Reports no associated symptoms related to today's event with no lightheadedness or dizziness, nausea vomiting. He has had no recent illness and denies COVID-19 exposure. He has had no fevers or chills, headaches. He has been somewhat hoarse following tonsillectomy. Denies complaints of chest pain or palpitations, shortness of breath cough or wheezing. He has had no abdominal pain, heartburn, nausea or vomiting. Reports no changes in bowel or bladder habits. Upon arrival the patient has a temperature of 98.0?, heart rate of 81, blood pressure 151/89, respirations of 14 saturating 99% on room air. No imaging is obtained the patient has an elevated white count at 19.8, hemoglobin of 14.1, hematocrit of 40.6 and platelets 266. On coagulation has a PT of 11.6, INR 1.0 PTT of 29. His electrolytes are all within normal limits he has a BUN 21 and creatinine 0.73. His nonfasting glucose is 112. His LFTs are all within normal limits. He is typed and screened and found to be O positive. Well in the ER the patient received nebulized tranexamic acid, Ativan 0.5 mg and morphine 2 mg and Zofran 4 mg. Bleeding is controlled. The case is reviewed with Dr. Rapp who was on-call for Dr. Pittman and is recommended the patient stay overnight for observation and is admitted to the medicine service for postoperative bleeding. Discharge Providers Provider Date of admission: 10/04/19 18:29 Discharge Date: 10/05/19 Primary care physician: Mandeep Lyman DO Consults: 10/04/19 20:27 Consult to Discharge Planning Routine Comment: 10/05/19 01:30 Consult to General Surgery Routine Comment: Consulting Provider: Devan Pittman Reason for consultation: Post tonsillectomy bleed, Dr. Rapp notified. Has provider been notified: Yes Discharge provider: Aby Hawk DO Summary Hospital Course Discharge Diagnosis: 1. Acute post tonsillectomy hemorrhage, present on admission. Resolved. 2. Acute reactive leukocytosis, present on admission. Resolving. 3. 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 Presumed stable. Hospital Course: Joe Yeh is a 43-year-old male with a past medical history significant for former smoker, invasive squamous cell cancer of neck, nephrolithiasis, anxiety and PTSD who presented to the ED with post tonsillectomy bleeding. 1. Acute post tonsillectomy hemorrhage, present on admission. Resolved. -Patient underwent tonsillectomy day prior to admission for invasive squamous cell carcinoma. He had abrupt onset of profuse bleeding following coughing today. Per patient description estimated blood loss was approximately 250-300 mL. Patient without associated symptoms of dizziness or shortness of breath. -Initial hemoglobin 14.1 and trended down to 13.0 but likely dilution and secondary to IV fluids. -Received nebulized tranexamic acid in ED. No further intervention required. -ENT, Dr. Rapp, was notified and on-call for Dr. Pittman who performed the procedure who requested patient be observed overnight and follow-up in office directly after discharge. -Patient kept NPO overnight and then was started on clears until further guided by ENT. He tolerated clears well. -Continued pain control with oxycodone 5 mg every 4 hours and dilaudid 0.5 mg x 2 doses for severe break through pain. 2. Acute reactive leukocytosis, present on admission. Resolving. -Initial WBC 19.8 and trended down to 13.5 and normalizing. No systemic signs of infection. -Continued to WBC daily. 3. 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 Presumed stable. -Tonsillectomy performed related to invasion of squamous cell carcinoma. -Followed by oncology, Dr. Corbett, with plans to start chemo and radiation therapy soon. Exam Vital Signs (past 8 hours): - 10/05/19 03:40 10/05/19 04:00 10/05/19 08:08 Temperature 97.7 F 98.4 F Pulse Rate 63 75 Respiratory Rate 16 16 Blood Pressure 122/75 133/82 Pulse Oximetry 96 96 99 Oxygen Delivery Method Room Air Oxygen Flow Rate 0 Narrative Exam Narrative: General: Middle aged gentleman lying in bed and in no acute distress, well-developed, well-nourished, flattering but otherwise appropriately interactive. HEENT: Normocephalic, atraumatic. External ears without defect. Pupils equal, round, and reactive to light. Anicteric sclerae, moist conjunctivae, and no lid lag. Bilateral tonsillectomy healing with scab and granulation tissue, mild erythema, no active bleeding. Uvula non-swollen. HEART: Regular rate and rhythm without murmur, clicks, rubs. Neck: Supple with full range of motion. No lymphadenopathy or thyromegaly. Cardiovascular: Regular rate and rhythm without murmurs, rubs, or gallops appreciated Pulmonary: Clear to auscultation bilaterally without crackles, wheezes, or rhonchi. Normal respiratory effort with no use of accessory muscles. Abdomen: Soft, bowel sounds present, nontender, nondistended. No hepatosplenomegaly or masses appreciated. Extremities: No clubbing, cyanosis, or edema. Skin: Normal temperature, turgor, and texture; no rash, ulcers, or subcutaneous nodules appreciated. Neurological: Cranial nerves grossly intact. Psychiatric: Anxious and slightly irritable mood and affect. Alert and oriented to person, place, and time. Objective Labs Result Diagrams: 10/05/19 04:40 10/05/19 04:40 Labs: Laboratory Results - last 24 hr 10/04/19 10/04/19 10/04/19 17:15 17:15 17:15 WBC 19.8 H RBC 4.72 Hgb 14.1 Hct 40.6 L MCV 85.9 MCH 29.8 MCHC 34.7 RDW 14.2 Plt Count 266 Neut % (Auto) 79.5 H Lymph % (Auto) 7.7 L [place] % (Auto) 12.3 Eos % (Auto) 0.1 L Baso % (Auto) 0.4 Neut # (Auto) 13964 H Lymph # (Auto) 1500 [place] # (Auto) 2400 H Eos # (Auto) 0 Baso # (Auto) 100 PT 11.6 INR 1.0 APTT 29 D Sodium Potassium Chloride Carbon Dioxide BUN Creatinine Estimated GFR BUN/Creatinine Ratio Glucose Calcium Total Bilirubin AST ALT Alkaline Phosphatase Total Protein Albumin Globulin Albumin/Globulin Ratio Blood Type O Positive Antibody Screen Negative 10/04/19 10/05/19 10/05/19 17:15 04:40 04:40 WBC 13.5 H RBC 4.35 L Hgb 13.0 L Hct 37.8 L MCV 86.9 MCH 30.0 MCHC 34.5 RDW 14.1 Plt Count 239 Neut % (Auto) 65.5 Lymph % (Auto) 20.5 L [place] % (Auto) 13.9 Eos % (Auto) 0.0 L Baso % (Auto) 0.1 Neut # (Auto) 8800 H Lymph # (Auto) 2800 [place] # (Auto) 1900 H Eos # (Auto) 0 Baso # (Auto) 0 PT INR APTT Sodium 136 L 137 Potassium 4.6 4.4 Chloride 102 103 Carbon Dioxide 27 28 BUN 21 H 19 Creatinine 0.73 0.83 Estimated GFR > 60.0 > 60.0 BUN/Creatinine Ratio 28.8 H 22.9 H Glucose 112 H 107 H Calcium 9.5 8.6 Total Bilirubin 0.5 AST 27 ALT 31 Alkaline Phosphatase 48 Total Protein 8.3 H Albumin 4.6 Globulin 3.7 Albumin/Globulin Ratio 1.2 Blood Type Antibody Screen Discharge Plan Discharge Plan Patient Disposition: Home Discharge comment: You're being discharged home. You were hospitalized for observation of post tonsillectomy bleeding. Your blood counts are stable. Please continue a clear liquid diet until further instructed by ENT. Continue pain control with the medications you were previously prescribed. Please follow-up with your ENT, Dr. Pittman, today at time of discharge. Discharge orders & Medications Prescriptions: Continued oxycodone 5 mg tablet 5 mg PO Q4HR PRN (Reason: Pain (Scale Score 4-6)) RF: 0 acetaminophen [Tylenol Extra Strength] 500 mg Tablet 1,000 mg PO QID PRN (Reason: pain ) RF: 0 ibuprofen 600 mg Tablet 600 mg PO Q8H PRN (Reason: Pain (Scale Score 1-3)) RF: 0 Follow up/Referrals: Devan Pittman MD [Physician] - 10/05/19 Mandeep Lyman, [Primary Care Provider] - Diet/Activity/Treatments Diet comment: Clear liquid Activity: Activity as tolerated Visit Report/Discharge Packet Instructions: Clear Liquid Diet, DI for Tonsillectomy-Adult, DI for Prescription Opioid Use Discharge Data Primary Care Provider: Mandeep Lyman Attending Provider: Aby Hawk Admit Date/Time: 10/04/19 18:29 Discharges patient from system. Discharge Date/Time: 10/05/19 12:17 Quality VTE Deep Vein Thrombosis/Pulmonary Embolism Present on Admission: No
--- NOTE | 2019-10-05 11:13 | PC.NURSE ---
Addendum entered by Brigido De Guzman R.N. 10/05/19 12:14: IV dc'd intact. Patient has no further questions. Escorted out via wheelchair with all belongings by [employer] to be discharged to home with his . Original Note: Discharge instructions and home care handouts reviewed with patient. Patient states understanding and has no further questions at this time. Patient reports he does feel a little anxious about the bleeding happening again, states he has a hard time taking it easy, but is going to try better this time around. Patient tolerating clear liquids this morning without n/v. Patient is waiting for his 's arrival to pick him up and then will go directly to Dr. Rapp' office from here for follow up. Spoke with Ruby in Dr. Rapp' office and she is expecting his arrival after discharge.
--- NOTE | 2019-10-05 13:48 | CM.DPNOTE ---
DC Note: Patient is a 43 yo male, admitted observation w/ bleeding after tonsillectomy. PCP: Mandeep Lyman Payer: [facility] Reviewed chart and spoke w/ RN Brigido; patient had already DC home w/family support before this G[employer]INING [employer]ESS OPERATOR was able to complete bedside visit. No needs from this GRAINING PRESS OPERATOR indicated by physician and RN JW
== END 2019-10-05 12:17 | disposition home or self-care (01) ==
LOC: ED 18:28 → AC 18:30
PROVIDERS: Nurse Practitioner Adult Health; Admitting Provider Internal Medicine; Emergency Provider Emergency Medicine; PCP Family Medicine; Referring Provider Emergency Medicine; Visit Provider Internal Medicine
DX: K91.841 Postprocedural hemorrhage of a digestive system organ or structure following other procedure (principal); C09.8 Malignant neoplasm of overlapping sites of tonsil; Z87.891 Personal history of nicotine dependence; D72.829 Elevated white blood cell count, unspecified
CPT/HCPCS: 36415; 80048; 80053; 85025; 85610; 85730; 86850; 86900; 86901; 94640; 96361; 96374; 96375; 96376; 99284; G0378; J1170; J2060; J2270; J2405

== ENCOUNTER 2021-11-13 07:21 | Emergency (ER) | payer OTHER, SELFPAY ==
[2021-11-13 07:27] VITALS: BP 136/82; PULSE 84; O2SAT 95
[2021-11-13 07:30] VITALS: PULSE 75; O2SAT 98
[2021-11-13 07:31] VITALS: BP 157/105; PULSE 74; O2SAT 97
--- NOTE | 2021-11-13 07:36 | DI.RAD.S_ITS ---
PROCEDURE: XR TIBIA FUBULA RT 2V INDICATIONS: fall TECHNIQUE: 2 views of the tibia and fibula were acquired. COMPARISON: None. FINDINGS: Bones: Old distal tibial fracture with internal fixation. In addition, there is old healed proximal fibular shaft fracture. No acute fractures or dislocations. No suspicious bony lesions. Moderate talonavicular joint degeneration is noted. Soft tissues: No suspicious soft tissue calcifications or masses. IMPRESSION: 1. No acute osseous abnormalities. 2. Old fractures of the distal tibia and proximal fibula. Dictated by: Flip Carmichael M.D. on 11/13/2021 at 8:33 Approved by: Flip Carmichael M.D. on 11/13/2021 at 8:35
[2021-11-13 07:37] VITALS: BP 136/82; PULSE 80; RESP 18; TEMP 36.5; O2SAT 99
--- NOTE | 2021-11-13 08:47 | ED.LOWEXIN ---
HPI - Extremity Injury (Lower) General Chief Complaint: Extremity Injury, Lower Stated Complaint: Right leg injury- has hardware in it Time Seen by Provider: 11/13/21 07:29 Source: patient Mode of arrival: Family Vehicle History of Present Illness HPI Narrative: 45-year-old male with an injury to his right lower extremity. Approximately years ago he had a significant injury to his tibia/fibula which required internal fixation. Three days ago he was hiking for he states the ground gave way underneath him and he essentially dorsiflex his right ankle which she states has had very limited movement since the initial injury. Since that time he has had discomfort. He has tried to stay off of it as much as possible. Has tried to keep it elevated but he continues to hurt. Related Data Home Medications Medication Instructions Recorded Confirmed acetaminophen 500 mg tablet 1,000 mg PO QID PRN pain 10/04/19 10/04/19 (Tylenol Extra Strength) ibuprofen 600 mg tablet 600 mg PO Q8H PRN Pain (Scale 10/04/19 10/04/19 Score 1-3) oxycodone 5 mg tablet 5 mg PO Q4HR PRN Pain (Scale Score 10/04/19 10/04/19 4-6) Allergies Allergy/AdvReac Type Severity Reaction Status Date / Time No Known Drug Allergies Allergy Verified 11/13/21 07:36 Review of Systems Musculoskeletal Musculoskeletal: Reports system reviewed and no additional complaints, except as documented Integumentary/Breasts Skin/Breast: Reports system reviewed and no additional complaints, except as documented Neurologic Neurologic: Reports system reviewed and no additional complaints, except as documented Patient History Medical History ADHD Anxiety Foot pain Fractures Neck mass Psoriasis PTSD (post-traumatic stress disorder) Restless leg syndrome Right arm fracture Shoulder pain Squamous cell carcinoma Surgical History Anesthesia History of surgery (~2007) History of surgery on arm (~1999) Right kidney stone (~2017) Family History (Updated 10/05/19 @ 01:32 by AMMON Chávez) Mother Stroke Kidney disease Substance abuse Father Medical history unknown Social History household members: spouse and friend(s) Smoking Status: Former smoker Smoking Status: Former smoker tobacco type: cigarettes and vaping alcohol intake frequency: a few times a week Substance Use Type: marijuana Exam Initial Vital Signs Initial Vital Signs: Vital Signs Pulse Rate 84 11/13/21 07:27 Blood Pressure 136/82 11/13/21 07:27 Pulse Oximetry 95 11/13/21 07:27 Cardio Pulses: dorsalis pedis present on the right Skin Other: Well-healed surgical scars consistent with his stated ORIF history Neuro Sensory Exam: no sensory deficits noted Extrem Other: Patient has tenderness to palpation over the tibialis anterior. He does have limited range of motion was right ankle this is baseline. No tenderness over the dorsum of his foot. Achilles tendon is intact. Gastrocnemius is intact. Course Orders Ordered: ED Orders 11/13/21 07:36 XR tibia fibula RT 2V Stat Vital Signs Vital signs: Vital Signs - 8 hr 11/13/21 07:37 11/13/21 07:27 11/13/21 07:27 Temperature 97.7 F Pulse Rate 80 84 Respiratory Rate 18 Blood Pressure 136/82 136/82 Pulse Oximetry 99 95 Oxygen Delivery Method Room Air 11/13/21 07:30 11/13/21 07:31 11/13/21 07:31 Temperature Pulse Rate 75 74 Respiratory Rate Blood Pressure 157/105 H Pulse Oximetry 98 97 Oxygen Delivery Method MDM - Extremity Injury (Lower) Imaging Data Extremity x-ray #1: Radiologist's Impression: [address] [address] XRay Report Signed Patient: Joe Yeh MR#: [id number] : 1975 Acct:[id number] Age/Sex: 45 / M Date of Service: 11/13/21 Loc: ED Accession Number: [id number] ?? Procedure: XR tibia fibula RT 2V Ordering Provider: Butch Askew D.O. PROCEDURE:? XR TIBIA FUBULA RT 2V ? INDICATIONS:? fall ? TECHNIQUE:? 2 views of the tibia and fibula were acquired.? ? COMPARISON:? None. ? FINDINGS:? ? Bones:? Old distal tibial fracture with internal fixation.? In addition, there is old healed proximal fibular shaft fracture.? No acute fractures or dislocations.? No suspicious bony lesions.? Moderate talonavicular joint degeneration is noted. ? Soft tissues:? No suspicious soft tissue calcifications or masses.? ? IMPRESSION:? ? 1. No acute osseous abnormalities. 2. Old fractures of the distal tibia and proximal fibula.? ? ? Dictated by: Flip Carmichael M.D. on 11/13/2021 at 8:33 ? ? Approved by: Flip Carmichael M.D. on 11/13/2021 at 8:35?? MDM Narrative Medical decision making narrative: X-ray shows no signs of acute fracture or dislocation in the hardware appears normal. He is neurovascularly intact. Will send home with crutches. Patient can ambulate as tolerated. He was given return precautions. He expressed understanding and agreement. Discharge Plan Departure Patient Disposition: Home Clinical Impression: Injury of leg, right Instructions: How to Use Crutches Activity Restrictions/Additional Instructions: The x-ray did not show any signs of fracture and the hardware appears to be intact. You can walk on your leg as tolerated. Use the crutches as needed and contact your primary doctor for a follow-up. Prescriptions: No Action oxycodone 5 mg tablet 5 mg PO Q4HR PRN (Reason: Pain (Scale Score 4-6)) Label Comments: Take 1 tablet by mouth every four to six hours as needed for pain acetaminophen [Tylenol Extra Strength] 500 mg Tablet 1,000 mg PO QID PRN (Reason: pain ) ibuprofen 600 mg Tablet 600 mg PO Q8H PRN (Reason: Pain (Scale Score 1-3)) Referrals: Mandeep Lyman, DO [Primary Care Provider] -
== END 2021-11-13 09:20 | disposition home or self-care (01) ==
PROVIDERS: Emergency Provider Emergency Medicine; PCP Family Medicine
DX: S89.91XA Unspecified injury of right lower leg, initial encounter (principal)
CPT/HCPCS: 73590; 99283

== ENCOUNTER → 2022-08-11 07:51 | Outpatient (CLI) | payer OTHER, SELFPAY | PROVIDERS: PCP Family Medicine; Visit Provider Physician Assistant | DX: R30.0 Dysuria (principal) | CPT/HCPCS: 87086 ==

== ENCOUNTER 2022-08-11 09:11 | Emergency (ER) | payer OTHER, SELFPAY ==
[2022-08-11 09:13] VITALS: BP 161/95; PULSE 64; RESP 16; TEMP 36.6; O2SAT 100; BMI 29.9
--- NOTE | 2022-08-11 09:22 | DI.CT.S_ITS ---
PROCEDURE: CT ABDOMEN PELVIS W CON INDICATIONS: Periumbilical abdominal pain, history of kidney stones TECHNIQUE: After the administration of intravenous contrast, axial sections acquired from the lung bases to the pubic symphysis. Coronal and sagittal reformats were performed. For radiation dose reduction, the following was used: automated exposure control, adjustment of mA and/or kV according to patient size. COMPARISON: [facility], CT, CT ABDOMEN PELVIS W CON, 12/27/2017, 14:28. FINDINGS: Image quality: Excellent. Lung bases: Mild bibasilar dependent atelectasis are seen posteriorly. Heart: Heart size is borderline enlarged, no pericardial effusion. ABDOMEN: Liver: Moderate hepatic steatosis is seen. 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 Gallbladder: Within normal limits. Biliary ducts: Unremarkable. Pancreas: Unremarkable. Spleen: Unremarkable. Adrenal Glands: Unremarkable. Kidneys and Ureters: Bilateral kidneys are normal in size and enhancement. No stones or hydronephrosis. Mild right hydroureter is seen extending to the level of right UVJ. No left hydroureter. Stomach and Bowel: Stomach, small bowel loops, and colon are unremarkable. Appendix is visualized and is within normal limits. Peritoneum: No abnormal intraperitoneal fluid. No free air. Ventral Wall: No hernias. Abdominal Nodes: No retroperitoneal or mesenteric adenopathy by size criteria. Vessels: Aorta and inferior vena cava are normal in size. PELVIS: Pelvic Organs: 4 millimeter calcification is seen in dependent portion of urinary bladder just distal to right UVJ suggestive of a passed stone. No other bladder stone is seen. No bladder wall thickening or discrete bladder wall mass. Bladder: Unremarkable. Pelvic Nodes: No enlarged lymph nodes. Miscellaneous: No hernias are seen. Bones: No suspicious bony lesions. No acute vertebral body compression fracture. IMPRESSION: 1. Finding is suggestive of a passed 4 millimeter right renal stone with mild residual right hydroureter. No left-sided hydronephrosis or hydroureter. 2. Normal appendix. No bowel obstruction or abnormal bowel wall thickening. No free fluid or free air. 3. Moderate hepatic steatosis. Suggestion of right hepatic lobe cyst as above. Dictated by: Eric Jones M.D. on 08/11/2022 at 9:47 Approved by: Eric Jones M.D. on 08/11/2022 at 9:52
--- NOTE | 2022-08-11 09:31 | ED.GENADULT ---
HPI - General Adult General Chief complaint: Abdominal Pain Stated complaint: sent by [facility] kidney stones Time Seen by Provider: 08/11/22 09:21 Source: patient Mode of arrival: Ambulatory History of Present Illness HPI narrative: Patient is a 46-year-old male who was sent over for the walk-in clinic for evaluation of abdominal pain, vomiting and dark colored your. Patient states that a couple days ago he had discoloration of his urine. He has had a history of kidney stones in the past but this feels different than that. He drank some water and that discoloration went away. He then started to have lower abdominal pain this morning and again dark-colored urine however after having a bowel movement his symptoms resolved. He went to the walk-in clinic because of the symptoms. There walk-in clinic he did have an episode of vomiting which she states has since resolved. Given these symptoms he was sent to the emergency department for further evaluation. Related Data Home Medications Medication Instructions Recorded Confirmed acetaminophen 500 mg tablet 1,000 mg PO QID PRN pain 10/04/19 08/11/22 (Tylenol Extra Strength) ibuprofen 600 mg tablet 600 mg PO Q8H PRN Pain (Scale 10/04/19 08/11/22 Score 1-3) oxycodone 5 mg tablet 5 mg PO Q4HR PRN Pain (Scale Score 10/04/19 08/11/22 4-6) Previous Rx's Medication Instructions Recorded ondansetron 4 mg disintegrating 4 mg PO Q6H PRN nausea and 08/11/22 tablet vomiting #14 tabs Allergies Allergy/AdvReac Type Severity Reaction Status Date / Time No Known Drug Allergies Allergy Verified 08/11/22 09:17 Review of Systems Constitutional Constitutional: Reports system reviewed and no additional complaints, except as documented Gastrointestinal Gastrointestinal: Reports system reviewed and no additional complaints, except as documented Genitourinary Genitourinary: Reports system reviewed and no additional complaints, except as documented Musculoskeletal Musculoskeletal: Reports system reviewed and no additional complaints, except as documented Integumentary/Breasts Skin/Breast: Reports system reviewed and no additional complaints, except as documented Patient History Medical History ADHD Anxiety Foot pain Fractures Neck mass Psoriasis PTSD (post-traumatic stress disorder) Restless leg syndrome Right arm fracture Shoulder pain Squamous cell carcinoma Surgical History Anesthesia History of surgery (~2007) History of surgery on arm (~1999) Right kidney stone (~2018) Family History (Updated 10/05/19 @ 01:32 by AMMON Chávez) Mother Stroke Kidney disease Substance abuse Father Medical history unknown Social History household members: spouse and friend(s) Smoking Status: Former smoker Smoking Status: Former smoker tobacco type: cigarettes and vaping alcohol intake frequency: 0-2 drinks per day Substance Use Type: marijuana Exam Initial Vital Signs Initial Vital Signs: Vital Signs Temperature 97.8 F 08/11/22 09:13 Pulse Rate 64 08/11/22 09:13 Respiratory Rate 16 08/11/22 09:13 Blood Pressure 161/95 H 08/11/22 09:13 Pulse Oximetry 100 08/11/22 09:13 Oxygen Delivery Method Room Air 08/11/22 09:13 Const General: cooperative, comfortable and No ill appearing HENMT Head: normal to inspection and normocephalic Cardio Rate: regular rate Rhythm: regular rhythm GI Inspection: normal to inspection and non-distended Palpation: soft and No tender Back/Spine/Pelvis Back: No CVA tenderness Skin General: no rashes or lesions noted Neuro General: patient alert and patient awake Course Orders Ordered: ED Orders 08/11/22 09:22 CT abdomen pelvis w con Stat 08/11/22 09:35 Complete Blood Count AUTO DIFF Stat Comprehensive Metabolic Panel Stat Lipase Stat Ondansetron HCl (Ondansetron 4 Mg/2 Ml Inj) 4 mg IV NOW PRN PRN Reason: Nausea And Vomiting Vital Signs Vital signs: Vital Signs - 8 hr 08/11/22 09:13 Temperature 97.8 F Pulse Rate 64 Respiratory Rate 16 Blood Pressure 161/95 H Pulse Oximetry 100 Oxygen Delivery Method Room Air Medical Decision Making Lab Data Lab results reviewed: Yes I reviewed the patient's lab results. 08/11/22 09:35 08/11/22 09:35 Labs: Lab Results 08/11/22 08/11/22 Range/Units 09:35 09:35 WBC 9.2 (4.5-11.0) X10^3/uL RBC 4.94 (4.5-5.9) X10^6/uL Hgb 14.7 (13.5-17.5) g/dL Hct 42.5 (41-53) % MCV 85.9 (80-100) fL MCH 29.7 (26-34) PG MCHC 34.6 (30-36) % RDW 14.0 (11.6-14.8) % Plt Count 244 (150-400) X10^3/uL Neut % (Auto) 78.9 H (50-75) % Lymph % (Auto) 13.9 L (25-40) % [place] % (Auto) 6.6 (3-14) % Eos % (Auto) 0.3 L (2-4) % Baso % (Auto) 0.3 (0-2) % Neut # (Auto) 7200 H (2261-6965) /uL Lymph # (Auto) 1300 (7443-6927) /uL [place] # (Auto) 600 (0-900) /uL Eos # (Auto) 0 (0-450) /uL Baso # (Auto) 0 (0-100) /uL Sodium 137 (137-145) mmol/L Potassium 4.2 (3.4-5.1) mmol/L Chloride 100 (98-107) mmol/L Carbon Dioxide 29 (22-32) mmol/L BUN 16 (9-20) mg/dL Creatinine 0.80 (0.66-1.25) mg/dL Estimated GFR > 60 (>60) mL/min BUN/Creatinine Ratio 20.0 (6-22) Glucose 131 H (70-100) mg/dL Calcium 9.1 (8.4-10.2) mg/dL Total Bilirubin 0.6 (0.2-1.3) mg/dL AST 32 (17-59) IU/L ALT 32 (<50) IU/L Alkaline Phosphatase 64 (38-126) U/L Total Protein 8.4 H (6.3-8.2) g/dL Albumin 4.7 (3.5-5.0) g/dL Globulin 3.7 (1.7-4.1) g/dL Albumin/Globulin Ratio 1.3 (1.0-2.8) Lipase 45 (23-300) U/L Imaging Data CT scan - abdomen/pelvis: Radiologist's Impression: PROCEDURE:? CT ABDOMEN PELVIS W CON ? INDICATIONS:? Periumbilical abdominal pain, history of kidney stones ? TECHNIQUE:? After the administration of intravenous contrast, axial sections acquired from the lung bases to the pubic symphysis.? Coronal and sagittal reformats were performed.? For radiation dose reduction, the following was used:? automated exposure control, adjustment of mA and/or kV according to patient size.? ? COMPARISON:? [facility], CT, CT ABDOMEN PELVIS W CON, 12/27/2017, 14:28. ? FINDINGS:? Image quality:? Excellent.? ? Lung bases:? Mild bibasilar dependent atelectasis are seen posteriorly. Heart:? Heart size is borderline enlarged, no pericardial effusion. ? ABDOMEN: Liver:? Moderate hepatic steatosis is seen.? 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 Gallbladder:? Within normal limits. Biliary ducts:? Unremarkable.? ? Pancreas:? Unremarkable.? ? Spleen:? Unremarkable.? ? Adrenal Glands:? Unremarkable.? ? Kidneys and Ureters:? Bilateral kidneys are normal in size and enhancement.? No stones or hydronephrosis.? Mild right hydroureter is seen extending to the level of right UVJ.? No left hydroureter. ? Stomach and Bowel:? Stomach, small bowel loops, and colon are unremarkable.? Appendix is visualized and is within normal limits. Peritoneum:? No abnormal intraperitoneal fluid.? No free air.? ? Ventral Wall: ? No hernias.? Abdominal Nodes:? No retroperitoneal or mesenteric adenopathy by size criteria.? Vessels:? Aorta and inferior vena cava are normal in size.? ? PELVIS: Pelvic Organs:? 4 millimeter calcification is seen in dependent portion of urinary bladder just distal to right UVJ suggestive of a passed stone.? No other bladder stone is seen.? No bladder wall thickening or discrete bladder wall mass. Bladder:? Unremarkable.? ? Pelvic Nodes: No enlarged lymph nodes.? Miscellaneous: No hernias are seen. ? ? ? Bones:? No suspicious bony lesions.? No acute vertebral body compression fracture. ? ? IMPRESSION:? 1. Finding is suggestive of a passed 4 millimeter right renal stone with mild residual right hydroureter.? No left-sided hydronephrosis or hydroureter. ? 2. Normal appendix.? No bowel obstruction or abnormal bowel wall thickening.? No free fluid or free air. ? 3. Moderate hepatic steatosis.? Suggestion of right hepatic lobe cyst as above. MDM Narrative Medical decision making narrative: Patient is well-appearing. Labs unremarkable. Urinalysis from the walk-in clinic showed blood but no other signs of infection. His kidney functions unremarkable. CT scan shows signs he potentially has passed a right-sided ureteral stone which does fit with his presentation today. There is no signs of urinary obstruction. No indication for antibiotics. Will send home with a prescription for nausea medication. I suspect that his symptoms will improve over the next 24-48 hours. He was given return precautions. He expressed understanding and agreement. Discharge Plan Departure Patient Disposition: Home Clinical Impression: Vomiting, Abdominal pain Instructions: DI for Abdominal Pain-Adult, DI for Vomiting -- Adult Activity Restrictions/Additional Instructions: I do recommend that you continue to take all of your medications as directed. A prescription for some nausea medicine was sent to [facility] per your request. Recommend that you try to increase your fluid intake and then advance your diet as tolerated. Return to the emergency department for any new or worsening symptoms. Prescriptions: New ondansetron 4 mg tablet,disintegrating 4 mg PO Q6H PRN (Reason: nausea and vomiting) Qty: 14 0RF No Action oxycodone 5 mg tablet 5 mg PO Q4HR PRN (Reason: Pain (Scale Score 4-6)) Patient Comments: Take 1 tablet by mouth every four to six hours as needed for pain acetaminophen [Tylenol Extra Strength] 500 mg Tablet 1,000 mg PO QID PRN (Reason: pain ) ibuprofen 600 mg Tablet 600 mg PO Q8H PRN (Reason: Pain (Scale Score 1-3)) Referrals: Mandeep Lyman DO [Primary Care Provider] - Stand Alone Forms: Patient Portal/API
[2022-08-11 09:42] LABS: Add Manual Diff / Slide Review NO; Basophils Absolute Auto 0 /uL (0-100); Basophils Percent Auto 0.3 % (0-2); Eosinophils Absolute Auto 0 /uL (0-450); Eosinophils Percent Auto 0.3 % (2-4); Hematocrit 42.5 % (41-53); Hemoglobin 14.7 g/dL (13.5-17.5); Lymphocytes Absolute Auto 1300 /uL (1100-4500); Lymphocytes Percent Auto 13.9 % (25-40); Mean Corpuscular HGB Conc 34.6 % (30-36); Mean Corpuscular Hemoglobin 29.7 PG (26-34); Mean Corpuscular Volume 85.9 fL (80-100); Monocytes Absolute Auto 600 /uL (0-900); Monocytes Percent Auto 6.6 % (3-14); Neutrophils Absolute Auto 7200 /uL (1500-7000); Neutrophils Percent Auto 78.9 % (50-75); Platelet Count 244 X10^3/uL (150-400); Red Blood Cell Count 4.94 X10^6/uL (4.5-5.9); White Blood Cell Count 9.2 X10^3/uL (4.5-11.0)
[2022-08-11 09:56] LABS: Alanine Aminotransferase 32 IU/L (<50); Albumin 4.7 g/dL (3.5-5.0); Albumin Globulin Ratio 1.3 (1.0-2.8); Alkaline Phosphatase 64 U/L (38-126); Aspartate Aminotransferase 32 IU/L (17-59); Bilirubin Total 0.6 mg/dL (0.2-1.3); Blood Urea Nitrogen 16 mg/dL (9-20); Calcium 9.1 mg/dL (8.4-10.2); Carbon Dioxide 29 mmol/L (22-32); Chloride 100 mmol/L (98-107); Estimated Glomerular Filt Rate > 60 mL/min (>60); Globulin 3.7 g/dL (1.7-4.1); Glucose 131 mg/dL (70-100); HEMOLYSIS < 15 (0-50); Lipase 45 U/L (23-300); Potassium 4.2 mmol/L (3.4-5.1); Sodium 137 mmol/L (137-145); Total Protein 8.4 g/dL (6.3-8.2)
[2022-08-11 11:26] VITALS: BP 153/72; PULSE 70; RESP 16; O2SAT 100
== END 2022-08-11 11:28 | disposition home or self-care (01) ==
PROVIDERS: Emergency Provider Emergency Medicine; PCP Family Medicine
DX: R10.30 Lower abdominal pain, unspecified (principal); Z87.442 Personal history of urinary calculi; R11.10 Vomiting, unspecified; R30.0 Dysuria
CPT/HCPCS: 36415; 74177; 80053; 83690; 85025; 87086; 99283; Q9967